=== PATIENT | female | born 1995 | race Caucasian/White ===

== ENCOUNTER 2016-09-06 20:26 | Emergency (ER) | payer MEDICAID ==
[2016-09-06 20:31] VITALS: RESP 18; TEMP 98.2
--- NOTE | 2016-09-06 20:56 | EDPHY ---
H & P Stated Complaint: Nausea, ST, Cough x1 week. Source: Patient Exam Limitations: No limitations - Personal History LMP (Females 10-55): 15-21 Days Ago Current Tetanus/Diphtheria Vaccine: Yes Current Tetanus Diphtheria and Acellular Pertussis (TDAP): Yes Tetanus Vaccine Date: < 10 years - Medical/Surgical History Hx Asthma: No Hx Chronic Respiratory Disease: No Hx Diabetes: No Hx Cardiac Disease: No Hx Renal Disease: No Hx Cirrhosis: No Hx Alcoholism: No Hx HIV/AIDS: No Hx Splenectomy or Spleen Trauma: No Other PMH: none - Social History Smoking Status: Never smoked Time Seen by Provider: 09/06/16 20:36 HPI/ROS: CHIEF COMPLAINT: Sore throat, nasal congestion, cough HISTORY OF PRESENT ILLNESS: 21-year-old female presents emergency department complaining of URI symptoms x5 days. Patient denies fevers. She reports mild nausea, no vomiting or diarrhea, no abdominal pain. She denies urinary symptoms. Patient reports worse throat is sore, right side worse than left, no difficulty managing her secretions, no neck pain. No shortness of breath or chest pain. REVIEW OF SYSTEMS: A comprehensive 10 point review of systems is otherwise negative aside from elements mentioned in the history of present illness. (Pema Mcadams) - Physical Exam Exam: General: Alert, nontoxic. ENT: Tympanic membranes clear, external auditory canal, external ear and surrounding soft tissue including over the mastoid unremarkable. Nasopharynx is injected, there is no rhinorrhea. Oropharynx with erythema, no edema. There is no exudate. Mild bilateral tonsillar hypertrophy. No asymmetry. The uvula is midline. No elevation of tongue. There is no hoarseness. No drooling, patient has good control of their oral secretions. No trismus. No stridor. Anterior cervical lymphadenopathy Cardiac: Regular rate and rhythm. Respiratory: Lungs clear to auscultation bilaterally. Abdomen: Soft, nontender Neurological: no meningismus. Skin: No rashes. (Pema Mcadams) Constitutional: Initial Vital Signs Temperature (C) 36.8 C 09/06/16 20:27 Heart Rate 79 09/06/16 20:27 Respiratory Rate 18 09/06/16 20:27 Blood Pressure 144/81 H 09/06/16 20:27 O2 Sat (%) 98 09/06/16 20:27 O2 Delivery Mode Room Air Allergies/Adverse Reactions: ibuprofen Allergy (Mild, Verified 08/06/15 15:15) Vomiting Home Medications: Medication Instructions Recorded Gianvi 3 mg-0.02 mg Tablet 09/06/16 Medical Decision Making ED Course/Re-evaluation: 21-year-old nontoxic-appearing female presents with URI symptoms x5 days. Vital signs are normal, lungs are clear to auscultation. Patient is discharged with instructions for symptomatic treatment of her viral syndrome. She is given return precautions. (Pema Mcadams) I did not see this patient while she was in the emergency department. however her care was discussed with the nurse practitioner while the patient was in the department. I agree with treatment plan and management (Yoni Barclay) Differential Diagnosis: Diagnosis considered but not limited to viral pharyngitis, strep pharyngitis, influenza, viral syndrome, URI (Pema Mcadams) Departure - Departure Disposition: Home, Routine, Self-Care Clinical Impression: Viral syndrome Condition: Good Instructions: Viral Syndrome (ED) Additional Instructions: Take over the counter 650 mg Tylenol every 6-8 hours as needed for pain, fevers. Rest, drink plenty of fluids. Use a saline nasal rinse, humidifier at night, hot steam showers. Return to the ED for difficulty breathing, chest pain, other concerns. Follow-up with your primary care doctor for symptoms that are not improving in the next week. Stop smoking cigarettes. Referrals: Ana Starkey MD [Primary Care Provider] - As per Instructions
[2016-09-06 21:42] VITALS: BP 123/79; PULSE 80; O2SAT 96
== END 2016-09-06 21:42 | disposition home or self-care (01) ==
DX: B34.9 Viral infection, unspecified (principal)